=== PATIENT | female | born 1985 | race Two or more races ===

== ENCOUNTER 2022-12-13 00:23 | Emergency (ER) | payer BC ==
[~2022-12-13] VITALS: Ht 175.3 cm; Wt 118.4 kg
[2022-12-13 00:48] VITALS: BP 133/90; TEMP 97.8
--- NOTE | 2022-12-13 00:48 | NUR ---
BIBSELF FROM HOME C/O BILATERAL FLANK PAIN X2 HRS. -N/V
--- NOTE | 2022-12-13 01:21 | NUR ---
DR. RANDHAWA AT BEDSIDE
[2022-12-13] MEDS ORDERED: MORPHINE SULFATE INJ 2 MG/ML DISP.SYRIN IV ONE (01:30)
[2022-12-13] MEDS ORDERED: MORPHINE SULFATE INJ 4 MG/ML DISP.SYRIN ONE (01:31)
--- NOTE | 2022-12-13 01:43 | NUR ---
PT ATTEMPTED TO GIVE URINE SAMPLE. UNABLE TO AT THIS TIME. PROVIDED WITH URINE CUP
--- NOTE | 2022-12-13 01:43 | NUR ---
FATHER AT BEDSIDE
[2022-12-13 01:52] LABS: BASOPHILS # (AUTO) 0.1 K/uL (0.0-0.2); BASOPHILS % (AUTO) 0.4 % (0.0-2.0); EOSINOPHILS % (AUTO) 1.5 % (0.0-6.0); HEMATOCRIT 37 % (33-45); LYMPHOCYTES # (AUTO) 2.4 K/uL (0.8-4.8); LYMPHOCYTES % (AUTO) 16.9 % (20.0-44.0); MEAN CORPUSCULAR HGB CONC 33 g/dl (31.0-36.0); MEAN CORPUSCULAR VOLUME 79 fL (82-100); MONOCYTES # (AUTO) 0.9 K/uL (0.1-1.30); MONOCYTES % (AUTO) 6.8 % (2.0-12.0); NEUTROPHILS # (AUTO) 10.4 K/uL (1.8-8.9); NEUTROPHILS % (AUTO) 74.4 % (43.0-81.0); PLATELET COUNT (AUTO) 242 K/uL (150-450); RED BLOOD CELL COUNT(AUTO) 4.63 MIL/uL (4.0-5.2); WHITE BLOOD COUNT (AUTO) 13.9 K/uL (4.3-11.0)
[2022-12-13 02:00] LABS: CALCIUM, SERUM 9.7 mg/dL (8.5-10.1); CREATININE 0.7 mg/dL (0.6-1.3); POTASSIUM 4.1 mmol/L (3.5-5.1)
[2022-12-13 02:06] LABS: ALBUMIN 3.2 g/dL (3.4-5.0); BILIRUBIN,DIRECT 0.1 mg/dL (0.0-0.2); BILIRUBIN,TOTAL 0.2 mg/dL (0.2-1.0); TOTAL PROTEIN, SERUM 7.5 g/dL (6.4-8.2)
--- NOTE | 2022-12-13 02:16 | NUR ---
US TECH AT BEDSIDE
[2022-12-13] MEDS ORDERED: HYDROCODONE/APAP 10/325MG TABLET ONE (02:39)
[2022-12-13] MEDS ORDERED: LIDOCAINE VISCOUS 2% UD 15 ML UDC ONE (02:50)
[2022-12-13] MEDS ORDERED: MAG HYDROX/AL HYDROX/SIMETH 30 ML UDC ONE (02:50)
[2022-12-13] MEDS ORDERED: HYDROCODONE/APAP 10/325MG TABLET PO ONE (03:00)
[2022-12-13] MEDS ORDERED: LIDOCAINE VISCOUS 2% UD 15 ML UDC MM ONE (03:00)
[2022-12-13] MEDS ORDERED: MAG HYDROX/AL HYDROX/SIMETH 30 ML UDC PO ONE (03:00)
--- NOTE | 2022-12-13 03:12 | NUR ---
PT SIGNED WAIVER FOR CT SCAN
--- NOTE | 2022-12-13 03:27 | NUR ---
PT TAKEN TO CT SCAN VIA [facility]
[2022-12-13] MEDS ORDERED: IV NS 0.9% 250 ML IV ONE (03:32)
[2022-12-13] MEDS ORDERED: CT SWABBABLE VALVE TRANS SET 1 EA INFUS.SET MC ONE (03:32)
[2022-12-13] MEDS ORDERED: IOHEXOL-300 100 ML VIAL IV ONE (03:32)
--- NOTE | 2022-12-13 03:52 | NUR ---
PT RETURNED FROM CT
[2022-12-13] MEDS ORDERED: HYDR-3980 PO (04:47)
--- NOTE | 2022-12-13 04:52 | NUR ---
PT REQUESTING TO SIGN AMA WITHOUT WANTING TO WAIT FOR CT RESULTS. DR. RANDHAWA AWARE. PT SIGNED AMA AND DISCHARGED IN STABLE CONDITION.
== END 2022-12-13 04:56 | disposition left against medical advice (07) ==
LOC: ER 00:25
DX: R10.11 Right upper quadrant pain (principal); R10.12 Left upper quadrant pain; F41.9 Anxiety disorder, unspecified; Z79.899 Other long term (current) drug therapy
CPT/HCPCS: 99285; 74177; 96374; 76705; 85025; 80048; 83690; 80076; J2270; J7050; Q9967; 36415